=== PATIENT | male | born 1985 | race Caucasian/White ===

== ENCOUNTER 2016-09-26 14:26 | Emergency (ER) | payer OTHER ==
[2016-09-26 14:44] VITALS: BP 118/81; PULSE 117; RESP 18; TEMP 98.1
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
== END 2016-09-26 15:15 | disposition home or self-care (01) ==
LOC: EC 14:26
DX: K08.89 Other specified disorders of teeth and supporting structures (principal); Z87.891 Personal history of nicotine dependence
CPT/HCPCS: 99282

== ENCOUNTER 2016-10-10 21:20 | Emergency (ER) | payer OTHER ==
[2016-10-10 21:28] VITALS: BP 126/90; PULSE 82; RESP 18; TEMP 97.9
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
== END 2016-10-10 22:07 | disposition home or self-care (01) ==
LOC: EC 21:20
DX: S02.5XXA Fracture of tooth (traumatic), initial encounter for closed fracture (principal); K02.9 Dental caries, unspecified; Z87.891 Personal history of nicotine dependence; X58.XXXA Exposure to other specified factors, initial encounter
CPT/HCPCS: 99282

== ENCOUNTER 2016-10-12 10:45 | Day surgery (SDC) | payer OTHER ==
[2016-10-09 14:44] VITALS: BMI 24.2
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
[~2016-10-12 10:45] MED LIST: ACETAMINOPHEN IV (For NPO) 1,000 MG in EMPTY BAG 1 BAG IVPB ONE; DEXAMETHASONE SOD PHOSPHATE 10 MG/ML 1 ML VIAL IV ONE; HEPARIN SODIUM,PORCINE 5,000 UNIT/ML 1 ML VIAL SQ ONE; LACTATED RINGERS 1,000 ML IV SCH; LIDOCAINE 1% 20 ML VIAL (10MG/ML) FOR IV START INTRADERMA PRN; ONDANSETRON 4 MG/2 ML VIAL IVP ONE; SCOPOLAMINE 1.5MG/72HR PATCH TRANSDERM ONE; ceFAZolin 2 GM in SODIUM CHLORIDE 0.9% 100 ML IVPB ONE
[2016-10-12] MEDS ORDERED: ROCURONIUM BROMIDE 10 MG/ML 10 ML VIAL IV ONE (13:13)
[2016-10-12] MEDS ORDERED: NEOSTIGMINE 1 MG/ML 10 ML VIAL ONE (13:13)
[2016-10-12] MEDS ORDERED: GLYCOPYRROLATE 0.2 MG/ML 2 ML VIAL ONE (13:13)
[2016-10-12] MEDS ORDERED: fentaNYL (PF) 50 MCG/ML 2 ML AMP ONE (13:13)
[2016-10-12] MEDS ORDERED: SUCCINYLCHOLINE CHLORIDE 100 MG/5 ML SYR IV ONE (13:13)
[2016-10-12] MEDS ORDERED: PROPOFOL 10 MG/ML 20 ML VIAL IV ONE (13:13)
[2016-10-12] MEDS ORDERED: MIDAZOLAM 2 MG/2 ML VIAL ONE (13:13)
[2016-10-12] MEDS ORDERED: LIDOCAINE 1% INJ 10MG/ML (20 ML MDV) ONE (13:13)
[2016-10-12] MEDS ORDERED: BUPIVACAIN-EPI 0.25%-1:200,000 30 ML VIAL SQ ONE ×2 (13:20→13:37)
[2016-10-12] MEDS ORDERED: LACTATED RINGERS 1,000 ML IV ONE (13:49)
[2016-10-12] MEDS ORDERED: HYDROcodone/APAP 5-325MG 1 EACH TAB PO PRN (14:22)
[2016-10-12] MEDS ORDERED: NALOXONE 0.4 MG/ML 1 ML VIAL IV PRN (14:22)
[2016-10-12] MEDS ORDERED: ONDANSETRON 4 MG/2 ML VIAL IVP PRN (14:22)
[2016-10-12] MEDS ORDERED: PROMETHAZINE 25 MG TAB PO PRN (14:22)
[2016-10-12 14:29] VITALS: TEMP 98.2
[2016-10-12] MEDS ORDERED: KETOROLAC 30 MG/ML 1 ML VIAL IVP SCH (14:30)
[2016-10-12] MEDS: HYDROmorphone 1 MG/ML 1 ML SYRINGE IVP PRN ×2 (14:35→14:39)
[2016-10-12 14:48] VITALS: RESP 16
[2016-10-12] MEDS: HYDROcodone/APAP 5-325MG 1 EACH TAB PO ONE ×2 (15:25→16:21)
[2016-10-12 16:25] VITALS: BP 107/72; PULSE 71
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
== END 2016-10-12 17:30 | disposition home or self-care (01) ==
LOC: OR 10:45
PROVIDERS: ATTEND Surgery Plastic and Reconstructive Surgery
DX: K43.0 Incisional hernia with obstruction, without gangrene (principal); T14.90 Injury, unspecified; V09.9XXS Pedestrian injured in unspecified transport accident, sequela; Z90.81 Acquired absence of spleen; Z86.718 Personal history of other venous thrombosis and embolism; K21.9 Gastro-esophageal reflux disease without esophagitis; H91.90 Unspecified hearing loss, unspecified ear; D68.51 Activated protein C resistance; F90.9 Attention-deficit hyperactivity disorder, unspecified type; F41.9 Anxiety disorder, unspecified; F31.9 Bipolar disorder, unspecified; Z79.2 Long term (current) use of antibiotics; Z79.891 Long term (current) use of opiate analgesic; Z87.891 Personal history of nicotine dependence
CPT/HCPCS: 49329; 49655; C1781; J2250; J1644; J1100; J2710; J0690; J2405; J2001; J3010; J1170; J0131; J0330; J2704

== ENCOUNTER 2016-12-03 00:16 | Emergency (ER) | payer OTHER ==
[2016-12-03 00:22] VITALS: TEMP 98.3
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
--- NOTE | 2016-12-03 02:57 | US ---
ADDENDUM - Added by Ti Barry M.D. on 12/03/2016 2:56 AM (-07:00) EXAM: US Duplex Right Lower Extremity Veins CLINICAL HISTORY: Reason: Pain TECHNIQUE: Real-time ultrasound scan of the veins of the right lower extremity with color Doppler flow, spectral waveform analysis and compression. COMPARISON: No relevant prior studies available. FINDINGS: Deep veins: Unremarkable. No DVT in the visualized common femoral, femoral, proximal deep femoral or popliteal veins. The veins are compressible with normal color flow and augmentation. No DVT in the proximal calf veins Superficial veins: Thrombus in the greater saphenous vein in the mid to low calf correlating with area of pain. Small saphenous vein appears patent Soft tissues: No acute findings. No popliteal cyst. IMPRESSION: 1. No DVT. 2. Thrombus in the right greater saphenous vein in the mid to low calf correlating with area of pain [employer] 12/03/16 03:08 Verify Receipt Verified receipt with MARYJO Bernal, report given to Zaynab BOYCE on 12/03 03:08 (-04:00)
[2016-12-03] MEDS ORDERED: KETOROLAC 60 MG/2 ML VIAL IM STA (03:17)
[2016-12-03 03:38] VITALS: BP 106/70; PULSE 96; RESP 16
== END 2016-12-03 03:38 | disposition home or self-care (01) ==
LOC: EC 00:16
DX: I82.811 Embolism and thrombosis of superficial veins of right lower extremity (principal)
CPT/HCPCS: 99284; 96372; 93971; J1885

== ENCOUNTER 2017-02-18 18:11 | Emergency (ER) | payer OTHER ==
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
[2017-02-18 20:04] VITALS: BP 124/68; PULSE 97; RESP 18; TEMP 98.1
== END 2017-02-18 20:04 | disposition home or self-care (01) ==
LOC: EC 18:11
DX: R25.2 Cramp and spasm (principal); R42 Dizziness and giddiness; Z86.718 Personal history of other venous thrombosis and embolism
CPT/HCPCS: 99283

== ENCOUNTER 2017-02-27 21:31 | Emergency (ER) | payer OTHER ==
[2017-02-27] MEDS ORDERED: SODIUM CHLORIDE 0.9% 500 ML IV STA (22:48)
[2017-02-27] MEDS ORDERED: SODIUM CHLORIDE 0.9% 1,000 ML IV STA (22:48)
[2017-02-27] MEDS ORDERED: ONDANSETRON 4 MG/2 ML VIAL IVP STA (22:48)
[2017-02-27 23:21] LABS: Appearance,Urine Clear (Clear); Bilirubin,Urine Negative (Negative); Glucose,Urine (UA) Negative (Negative); Ketones,Urine Negative (Negative); Leukocyte Esterase,Urine Negative (Negative); Nitrite,Urine Negative (Negative); PH, Urine 5.5 (5.0-8.0); Protein,Urine Negative (Negative); Specific Gravity,Urine 1.015 (1.001-1.035); UA Billing (MACRO vs. MICRO) CHEM; Urobilinogen,Urine <2.0 mg/dL (<2.0)
[2017-02-27 23:24] LABS: Basophils # (A) 0.1 k/uL (0-0.2); Basophils % (A) 1 %; CH 32.4; CHCM 33.3; Eosinophils # (A) 0.4 k/uL (0-0.7); Eosinophils % (A) 3 %; HCT 59.9 % (39.0-53.0); HDW 2.41; HGB 19.7 gm/dL (13.0-17.5); Luc # (Auto) 0.21; Luc % (Auto) 2; Lymphocytes # (A) 4.2 k/uL (1.0-4.8); Lymphocytes % (A) 39 %; MCH 32.2 pg (25.0-35.0); MCHC 32.9 g/dL (31.0-37.0); MCV 98.1 fL (80.0-100.0); Mean Platelet Volume 7.2; Monocytes # (A) 0.9 k/uL (0-1.0); Monocytes % (A) 9 %; Neutrophils # (A) 4.9 k/uL (1.3-7.7); Neutrophils % (A) 46 %; RBC 6.11 m/uL (4.30-5.90); WBC 10.7 k/uL (3.8-10.6); WBC (Perox) 10.88
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
[2017-02-27 23:41] LABS: ALT 33 U/L (21-72); AST 25 U/L (17-59); Alkaline Phosphatase 66 U/L (38-126); Amylase 52 U/L (30-110); Anion Gap 8 mmol/L; Blood Urea Nitrogen 14 mg/dL (9-20); Calcium 9.6 mg/dL (8.4-10.2); Carbon Dioxide 21 mmol/L (22-30); Chloride 109 mmol/L (98-107); Glucose 94 mg/dL (74-99); Non-African American GFR(MDRD) >60 (>60 ml/min/1.73 sqM); Potassium 4.7 mmol/L (3.5-5.1); Sodium 138 mmol/L (137-145); Total Bilirubin 0.5 mg/dL (0.2-1.3); Total Protein 6.9 g/dL (6.3-8.2)
--- NOTE | 2017-02-27 23:48 | XR ---
EXAM: XR Abdomen, 1 View CLINICAL HISTORY: Reason: abdominal pain, dizziness, abd pain, nausea, history of appendectomy, hernia repair and splenectomy TECHNIQUE: Frontal supine view of the abdomen/pelvis. COMPARISON: CT abdomen and pelvis, 10/25/14 FINDINGS: Gastrointestinal tract: Unremarkable. No dilation. Bones/joints: Unremarkable. Soft tissues: Surgical clips right abdomen. IMPRESSION: No acute findings.
[2017-02-28 00:59] VITALS: BP 124/85; PULSE 73; RESP 16; TEMP 97.5
== END 2017-02-28 00:59 | disposition home or self-care (01) ==
LOC: EC 21:31
DX: K52.9 Noninfective gastroenteritis and colitis, unspecified (principal); Z90.49 Acquired absence of other specified parts of digestive tract
CPT/HCPCS: 99284; 96374; 96361 ×2; 36415; 80053; 82150; 83690; 85025; 86308; 81003; 74000; J2405

== ENCOUNTER 2017-03-14 01:35 | Emergency (ER) | payer OTHER ==
[2017-03-14] MEDS ORDERED: KETOROLAC 30 MG/ML 1 ML VIAL IVP STA (02:47)
[2017-03-14] MEDS ORDERED: SODIUM CHLORIDE 0.9% 1,000 ML IV STA (02:47)
[2017-03-14] MEDS ORDERED: METOCLOPRAMIDE 5 MG/ML 2 ML VIAL IVP STA (02:47)
[2017-03-14] MEDS ORDERED: diphenhydrAMINE 50 MG/ML 1 ML VIAL IVP STA (02:47)
[2017-03-14] MEDS ORDERED: ORPHENADRINE 30 MG/ML 2 ML VIAL IVP STA (02:48)
[2017-03-14 04:11] LABS: Basophils # (A) 0.1 k/uL (0-0.2); Basophils % (A) 1 %; CHCM 32.9; Eosinophils # (A) 0.2 k/uL (0-0.7); Eosinophils % (A) 2 %; HDW 2.32; HGB 19.3 gm/dL (13.0-17.5); Luc # (Auto) 0.24; Luc % (Auto) 3; Lymphocytes # (A) 2.9 k/uL (1.0-4.8); Lymphocytes % (A) 33 %; MCH 31.5 pg (25.0-35.0); MCHC 31.2 g/dL (31.0-37.0); Macrocytosis Slight; Mean Platelet Volume 7.1; Monocytes # (A) 0.9 k/uL (0-1.0); Monocytes % (A) 10 %; Neutrophils # (A) 4.5 k/uL (1.3-7.7); Neutrophils % (A) 52 %; RBC 6.13 m/uL (4.30-5.90); RDW 14.9 % (11.5-15.5); WBC 8.8 k/uL (3.8-10.6); WBC (Perox) 8.79
[2017-03-14 04:16] VITALS: BP 106/68; PULSE 73; RESP 18; TEMP 97.4
[2017-03-14 04:20] LABS: HCT 61.9 % (39.0-53.0)
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
[2017-03-14 04:33] LABS: ALT 26 U/L (21-72); AST 19 U/L (17-59); Alkaline Phosphatase 66 U/L (38-126); Anion Gap 11 mmol/L; Blood Urea Nitrogen 12 mg/dL (9-20); Calcium 9.1 mg/dL (8.4-10.2); Carbon Dioxide 18 mmol/L (22-30); Chloride 110 mmol/L (98-107); Glucose 73 mg/dL (74-99); Non-African American GFR(MDRD) >60 (>60 ml/min/1.73 sqM); Potassium 4.6 mmol/L (3.5-5.1); Sodium 139 mmol/L (137-145); Total Bilirubin 1.3 mg/dL (0.2-1.3); Total Protein 6.9 g/dL (6.3-8.2)
== END 2017-03-14 05:07 | disposition home or self-care (01) ==
LOC: EC 01:35
DX: G43.909 Migraine, unspecified, not intractable, without status migrainosus (principal); D75.1 Secondary polycythemia; Z86.718 Personal history of other venous thrombosis and embolism; Z86.2 Personal history of diseases of the blood and blood-forming organs and certain disorders involving the immune mechanism
CPT/HCPCS: 99284 ×2; 96374 ×2; 96375 ×4; 96361 ×2; 36415; 80053; 85025; J1200; J2360; J2765; J1885

== ENCOUNTER 2017-07-23 20:35 | Emergency (ER) | payer OTHER ==
[2017-07-23 21:13] VITALS: BP 127/80; PULSE 79; RESP 20; TEMP 98.1
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
[2017-07-23] MEDS ORDERED: IBUPROFEN 600 MG TAB PO STA (21:53)
== END 2017-07-23 21:56 | disposition home or self-care (01) ==
LOC: EC 20:35
DX: T23.231A Burn of second degree of multiple right fingers (nail), not including thumb, initial encounter (principal); T31.0 Burns involving less than 10% of body surface; Z86.718 Personal history of other venous thrombosis and embolism; X19.XXXA Contact with other heat and hot substances, initial encounter; Y92.009 Unspecified place in unspecified non-institutional (private) residence as the place of occurrence of the external cause
CPT/HCPCS: 16020; 99283

== ENCOUNTER 2017-09-10 16:03 | Emergency (ER) | payer OTHER ==
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
[2017-09-10 16:29] VITALS: BP 129/77; PULSE 92; RESP 18; TEMP 97.7
== END 2017-09-10 16:32 | disposition home or self-care (01) ==
LOC: EC 16:03
DX: L50.9 Urticaria, unspecified (principal); Z85.3 Personal history of malignant neoplasm of breast; Z85.89 Personal history of malignant neoplasm of other organs and systems
CPT/HCPCS: 99282

== ENCOUNTER 2018-03-12 21:20 | Emergency (ER) | payer OTHER ==
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
--- NOTE | 2018-03-12 23:10 | US ---
EXAMINATION TYPE: US venous doppler duplex LE LT DATE OF EXAM: 03/12/2018 10:52 PM COMPARISON: 03/26/2015 CLINICAL HISTORY: Pain. Left leg cramping hx of DVT left leg not on blood thinners. SIDE PERFORMED: Left TECHNIQUE: The lower extremity deep venous system is examined utilizing real time linear array sonog christopher with graded compression, doppler sonography and color-flow sonography. VESSELS IMAGED: External Iliac Vein (EIV) Common Femoral Vein Deep Femoral Vein Greater Saphenous Vein * Femoral Vein Popliteal Vein Small Saphenous Vein * Proximal Calf Veins (* superficial vessels) Left Leg: Flow is seen in femoral and popliteal veins. Veins compress partially probably representin g chronic known DVT. IMPRESSION: There is incomplete compressibility of the femoral vein consistent with chronic deep veno us thrombosis. No evidence of acute deep venous thrombosis.
[2018-03-12 23:57] VITALS: BP 120/68; PULSE 68; RESP 17; TEMP 97.9
== END 2018-03-12 23:57 | disposition home or self-care (01) ==
LOC: EC 21:20
DX: M79.605 Pain in left leg (principal); Z86.718 Personal history of other venous thrombosis and embolism
CPT/HCPCS: 99283

== ENCOUNTER 2019-05-18 18:52 | Emergency (ER) | payer OTHER ==
[2019-05-18 19:08] VITALS: BP 122/87; PULSE 83; RESP 19; TEMP 99.8
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
== END 2019-05-18 21:46 | disposition home or self-care (01) ==
LOC: EC 18:52
DX: F32.9 Major depressive disorder, single episode, unspecified (principal); F41.9 Anxiety disorder, unspecified; R45.851 Suicidal ideations; F10.10 Alcohol abuse, uncomplicated
CPT/HCPCS: 99285

== ENCOUNTER 2019-07-08 19:19 | Emergency (ER) | payer OTHER ==
--- NOTE | 2019-07-08 21:43 | US ---
EXAMINATION TYPE: US venous doppler duplex LE RT DATE OF EXAM: 07/08/2019 9:34 PM COMPARISON: US CLINICAL HISTORY: popliteal pain. Right popliteal pain x 3 days. Hx DVT. Hx green field filter, remov ed. Patient does not take blood thinners. SIDE PERFORMED: Right TECHNIQUE: The lower extremity deep venous system is examined utilizing real time linear array sonog christopher with graded compression, doppler sonography and color-flow sonography. VESSELS IMAGED: Common Femoral Vein Deep Femoral Vein Greater Saphenous Vein * Femoral Vein Popliteal Vein Small Saphenous Vein * Proximal Calf Veins (* superficial vessels) Right Leg: There appears to be echogenic thrombus in the popliteal vein. Trickle flow seen. Vessel d oes not compress. Prox calf veins limited visibility. IMPRESSION: There is some chronic deep venous thrombosis in the popliteal vein.
[2019-07-08] MEDS ORDERED: APIXABAN 5 MG TAB PO STA (22:10)
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
[2019-07-08 22:52] VITALS: BP 125/89; PULSE 97; RESP 18
[2019-07-08 22:58] VITALS: TEMP 97.9
== END 2019-07-08 22:52 | disposition home or self-care (01) ==
LOC: EC 19:19
DX: I82.531 Chronic embolism and thrombosis of right popliteal vein (principal); Z90.81 Acquired absence of spleen
CPT/HCPCS: 99284

== ENCOUNTER 2019-08-20 01:13 | Emergency (ER) | payer OTHER ==
[2019-08-20 01:23] VITALS: TEMP 97.9
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
[2019-08-20 02:01] LABS: Amphetamine Screen,Urine Not Detected (NotDetected); Barbiturate Screen,Urine Not Detected (NotDetected); Benzodiazepines Screen,Urine Not Detected (NotDetected); Cocaine Screen,Urine Not Detected (NotDetected); Methadone Screen, Urine Not Detected (NotDetected); Opiate Screen,Urine Not Detected (NotDetected); Oxycodone Screen, Urine Not Detected (NotDetected); Phencyclidine Screen,Urine Not Detected (NotDetected); Tricyclic Antidepressant,Urine Not Detected (NotDetected); Urn Cannabinoid Scrn Detected (NotDetected)
[2019-08-20 05:28] VITALS: PULSE 60
[2019-08-20 10:41] VITALS: BP 120/82; RESP 18
== END 2019-08-20 10:41 | disposition home or self-care (01) ==
LOC: EC 01:13
DX: F32.9 Major depressive disorder, single episode, unspecified (principal); Z86.718 Personal history of other venous thrombosis and embolism; Z90.81 Acquired absence of spleen
CPT/HCPCS: 80306; 82075; 99285

== ENCOUNTER 2019-11-23 15:53 | Observation (INO) | payer OTHER ==
--- NOTE | 2019-11-23 17:24 | US ---
EXAMINATION TYPE: US venous doppler duplex LE RT DATE OF EXAM: 11/23/2019 4:24 PM COMPARISON: Previous exam 07/08/2019 CLINICAL HISTORY: pain. Factor 5 patient with h/o right leg dvt and multiple PE's in Jul 2019, had Gr eenfield filter but has been removed, currently not on thinners SIDE PERFORMED: Right TECHNIQUE: The lower extremity deep venous system is examined utilizing real time linear array sonog christopher with graded compression, doppler sonography and color-flow sonography. VESSELS IMAGED: External Iliac Vein (EIV) Common Femoral Vein Deep Femoral Vein Greater Saphenous Vein * Femoral Vein Popliteal Vein Small Saphenous Vein * Proximal Calf Veins (* superficial vessels) Right Leg: No flow seen within venous system from proximal calf veins up through proximal femoral ve in. Vein is non compressible at these levels and have internal debris with dilation to vessel. IMPRESSION: Deep venous thrombosis throughout the distribution of the right superficial femoral, popl iteal veins.
[2019-11-23] MEDS ORDERED: HEPARIN SODIUM,PORCINE 5,000 UNIT/ML 1 ML VIAL IV PRN (17:42)
[2019-11-23] MEDS ORDERED: HEPARIN SODIUM,PORCINE 10,000 UNIT/ML 1 ML VIAL IV ONE (17:42)
[2019-11-23] MEDS ORDERED: HEPARIN SOD,PORK IN 0.45% NACL 25,000 UNIT in 0.45% NACL 1 250ML.BAG IV SCH (17:45)
[2019-11-23 17:47] LABS: Basophils # (A) 0.1 k/uL (0-0.2); Basophils % (A) 1 %; Eosinophils # (A) 0.4 k/uL (0-0.7); Eosinophils % (A) 3 %; Lymphocytes # (A) 2.5 k/uL (1.0-4.8); Lymphocytes % (A) 19 %; MCH 32.5 pg (25.0-35.0); MCHC 32.3 g/dL (31.0-37.0); MCV 100.7 fL (80.0-100.0); Mean Platelet Volume 7.3; Monocytes # (A) 1.6 k/uL (0-1.0); Monocytes % (A) 12 %; Neutrophils # (A) 8.1 k/uL (1.3-7.7); Neutrophils % (A) 62 %; Platelet Count 305 k/uL (150-450); RBC 5.97 m/uL (4.30-5.90); RDW 13.4 % (11.5-15.5)
[2019-11-23 17:53] LABS: HCT 60.1 % (39.0-53.0); HGB 19.4 gm/dL (13.0-17.5)
[2019-11-23] MEDS ORDERED: NALOXONE 0.4 MG/ML 1 ML VIAL IV PRN (18:23)
[2019-11-23 18:25] LABS: ALT 12 U/L (4-49); AST 20 U/L (17-59); African American GFR (CKD) >90 (>60 ml/min/1.73 sqM); Albumin 3.9 g/dL (3.5-5.0); Alkaline Phosphatase 71 U/L (38-126); Anion Gap 7 mmol/L; Blood Urea Nitrogen 8 mg/dL (9-20); Calcium 9.1 mg/dL (8.4-10.2); Carbon Dioxide 24 mmol/L (22-30); Chloride 105 mmol/L (98-107); Glucose 94 mg/dL (74-99); Non-African American GFR(CKD) >90 (>60 ml/min/1.73 sqM); Potassium 4.4 mmol/L (3.5-5.1); Sodium 136 mmol/L (137-145); Total Bilirubin 1.4 mg/dL (0.2-1.3)
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
--- NOTE | 2019-11-23 18:40 | CT ---
EXAMINATION TYPE: CT chest angio for PE DATE OF EXAM: 11/23/2019 COMPARISON: None HISTORY: Tachycardia. History of PE in July and positive DVT. CT DLP: 360.3 mGycm Automated exposure control for dose reduction was used. CONTRAST: CT Chest for pulmonary embolism performed with with IV Contrast, patient injected with 100 mL of Isov ue 370. FINDINGS: LUNGS: The lungs are grossly clear, there is no concerning parenchymal mass or nodule identified. T here is no pleural effusion or pneumothorax seen. The tracheobronchial tree is patent. MEDIASTINUM: There is satisfactory enhancement of the pulmonary artery and its branches, there is no CT evidence for pulmonary embolism. There are no greater than 1 cm hilar or mediastinal lymph nodes. No pericardial effusion is seen. There is an hiatal hernia present. AORTA: No additional significant abnormality is seen. OTHER: No additional significant abnormality is seen. IMPRESSION: No evident pulmonary embolus.
[2019-11-23 18:43] LABS: Partial Thromboplastin Time 24.4 sec (22.0-30.0); Prothrombin Time 10.3 sec (9.0-12.0)
[2019-11-23] MEDS: SODIUM CHLORIDE 0.9% 1,000 ML IV SCH (18:56)
[2019-11-23] MEDS ORDERED: LITHIUM CARBONATE 300 MG CAP PO SCH (21:40)
[2019-11-23] MEDS ORDERED: QUEtiapine 50 MG TAB PO SCH (21:45)
[2019-11-24 06:41] LABS: African American GFR (CKD) >90 (>60 ml/min/1.73 sqM); Anion Gap 5 mmol/L; Basophils # (A) 0.1 k/uL (0-0.2); Basophils % (A) 1 %; Blood Urea Nitrogen 6 mg/dL (9-20); Calcium 8.7 mg/dL (8.4-10.2); Carbon Dioxide 22 mmol/L (22-30); Chloride 109 mmol/L (98-107); Eosinophils # (A) 0.5 k/uL (0-0.7); Eosinophils % (A) 3 %; Glucose 101 mg/dL (74-99); HGB 18.4 gm/dL (13.0-17.5); Lymphocytes # (A) 4.5 k/uL (1.0-4.8); Lymphocytes % (A) 29 %; MCH 32.6 pg (25.0-35.0); MCHC 32.6 g/dL (31.0-37.0); Mean Platelet Volume 7.5; Monocytes # (A) 1.9 k/uL (0-1.0); Monocytes % (A) 12 %; Neutrophils # (A) 8.5 k/uL (1.3-7.7); Neutrophils % (A) 54 %; Non-African American GFR(CKD) >90 (>60 ml/min/1.73 sqM); Platelet Count 309 k/uL (150-450); Potassium 4.2 mmol/L (3.5-5.1); RBC 5.65 m/uL (4.30-5.90); RDW 13.6 % (11.5-15.5); Sodium 136 mmol/L (137-145); WBC 15.9 k/uL (3.8-10.6)
[2019-11-24 06:51] LABS: HCT 56.5 % (39.0-53.0)
[2019-11-24] MEDS: SODIUM CHLORIDE 0.9% 1,000 ML IV SCH (08:15)
[2019-11-24 08:32] VITALS: BP 114/76; PULSE 94; RESP 19; TEMP 98.6
[2019-11-24] MEDS ORDERED: VENLAFAXINE HCL ER 75 MG CAP PO SCH (09:00)
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
--- NOTE | 2019-11-24 14:06 | P.DS ---
Providers Date of admission: 11/23/19 19:21 Attending physician: Javier Keen MD Consults: 11/23/19 18:46 Consult Physician Routine Consulting Provider: Chavez Yu Consult Reason/Comments: Elevated HgB, Factor V patient, admitted for DVT Do you want consulting provider notified?: Yes, Notify in am Primary care physician: Stated None Hospital Course: refer to my history of present illness for further details Patient Condition at Discharge: Stable Plan - Discharge Summary New Discharge Prescriptions: New Apixaban [Eliquis Starter Pack (for VTE)] 0 mg PO DIRECTED 30 Days #1 pack Continue Venlafaxine HCl [Effexor XR] 225 mg PO DAILY QUEtiapine [SEROquel] 50 mg PO HS [place] Carbonate 600 mg PO HS Discharge Medication List [place] Carbonate 600 mg PO HS 11/23/19 [History] QUEtiapine [SEROquel] 50 mg PO HS 11/23/19 [History] Venlafaxine HCl [Effexor XR] 225 mg PO DAILY 11/23/19 [History] Apixaban [Eliquis Starter Pack (for VTE)] 0 mg PO DIRECTED 30 Days #1 pack 11/24/19 [Rx] Follow up Appointment(s)/Referral(s): Chavez Yu MD [STAFF PHYSICIAN] - 1 Week (Spoke to spa technician. Office will call with appointment time) Maliha Elias MD [REFERRING] - 3 Days (Per spa technician, you must call to make your own appointment) Patient Instructions/Handouts: Deep Vein Thrombosis (DC), Safe Use of Anticoagulants (DC) Discharge Disposition: HOME SELF-CARE
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
== END 2019-11-24 17:25 | disposition home or self-care (01) ==
LOC: EC 15:53 → 3SCARD 19:21 → INTOOBSV 19:21 → 3SCARD 20:19 → UNDODISIN 11-24 17:25
PROVIDERS: ADMIT Internal Medicine; ATTEND Internal Medicine
DX: I82.411 Acute embolism and thrombosis of right femoral vein (principal); I82.431 Acute embolism and thrombosis of right popliteal vein; D72.829 Elevated white blood cell count, unspecified; D75.1 Secondary polycythemia; D68.2 Hereditary deficiency of other clotting factors; E87.1 Hypo-osmolality and hyponatremia; F12.90 Cannabis use, unspecified, uncomplicated; Z71.51 Drug abuse counseling and surveillance of drug abuser; F31.9 Bipolar disorder, unspecified; Z91.128 Patient's intentional underdosing of medication regimen for other reason; T45.516A Underdosing of anticoagulants, initial encounter; F17.200 Nicotine dependence, unspecified, uncomplicated; D68.59 Other primary thrombophilia; R00.0 Tachycardia, unspecified; F90.9 Attention-deficit hyperactivity disorder, unspecified type; F41.9 Anxiety disorder, unspecified; Z87.828 Personal history of other (healed) physical injury and trauma; Z79.899 Other long term (current) drug therapy; Z03.818 Encounter for observation for suspected exposure to other biological agents ruled out; Z86.718 Personal history of other venous thrombosis and embolism; Z86.711 Personal history of pulmonary embolism; Z90.49 Acquired absence of other specified parts of digestive tract; Z90.81 Acquired absence of spleen; Z98.890 Other specified postprocedural states; Z83.3 Family history of diabetes mellitus; Z82.49 Family history of ischemic heart disease and other diseases of the circulatory system; Z83.49 Family history of other endocrine, nutritional and metabolic diseases; Z80.3 Family history of malignant neoplasm of breast; Z80.49 Family history of malignant neoplasm of other genital organs
CPT/HCPCS: 96374; 99285; 36415; 93005; 80053; 80048; 85025 ×2; 85610; 85730 ×2; 93971; 71275; G0378 ×2; U0003; J1644 ×2; Q9967; 96365; 96366; 96376

== ENCOUNTER 2020-02-03 23:57 | Observation (INO) | payer OTHER ==
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
--- NOTE | 2020-02-04 01:07 | US ---
EXAMINATION TYPE: US venous doppler duplex LE RT DATE OF EXAM: 02/04/2020 12:55 AM COMPARISON: US 2019 CLINICAL HISTORY: DVT hx, factor 5. Hx DVT in right lower extremity. Factor 5. Hx keli filter r emoved. Patient does not take blood thinners. SIDE PERFORMED: Right TECHNIQUE: The lower extremity deep venous system is examined utilizing real time linear array sonog christopher with graded compression, doppler sonography and color-flow sonography. VESSELS IMAGED: External Iliac Vein (EIV) Common Femoral Vein Deep Femoral Vein Greater Saphenous Vein * Femoral Vein Popliteal Vein Small Saphenous Vein * Proximal Calf Veins (* superficial vessels) Right Leg: Internal echoes are seen within the femoral vein and popliteal vein. Thrombus seen from pr ox calf veins to prox femoral vein. Unable to fully compress these veins. Thready or no flow is seen within these segments. IMPRESSION: There is evidence of acute deep vein thrombosis involving the femoral and popliteal vein.
[2020-02-04 01:15] LABS: Appearance,Urine Clear (Clear); Bilirubin,Urine Negative (Negative); Blood,Urine Negative (Negative); Color,Urine Yellow; Glucose,Urine (UA) Negative (Negative); Ketones,Urine Negative (Negative); Leukocyte Esterase,Urine Negative (Negative); Nitrite,Urine Negative (Negative); PH, Urine 5.5 (5.0-8.0); Protein,Urine Negative (Negative); Specific Gravity,Urine 1.009 (1.001-1.035); Urobilinogen,Urine <2.0 mg/dL (<2.0)
[2020-02-04] MEDS ORDERED: HEPARIN SODIUM,PORCINE 10,000 UNIT/ML 1 ML VIAL IV ONE (01:27)
[2020-02-04] MEDS ORDERED: HEPARIN SODIUM,PORCINE 5,000 UNIT/ML 1 ML VIAL IV PRN (01:27)
[2020-02-04 01:28] LABS: Amphetamine Screen,Urine Not Detected (NotDetected); Barbiturate Screen,Urine Not Detected (NotDetected); Benzodiazepines Screen,Urine Not Detected (NotDetected); Cocaine Screen,Urine Not Detected (NotDetected); Methadone Screen, Urine Not Detected (NotDetected); Opiate Screen,Urine Not Detected (NotDetected); Oxycodone Screen, Urine Not Detected (NotDetected); Phencyclidine Screen,Urine Not Detected (NotDetected); Tricyclic Antidepressant,Urine Not Detected (NotDetected); Urn Cannabinoid Scrn Detected (NotDetected)
[2020-02-04] MEDS ORDERED: HEPARIN SOD,PORK IN 0.45% NACL 25,000 UNIT in 0.45% NACL 1 250ML.BAG IV SCH (01:30)
[2020-02-04] MEDS ORDERED: NALOXONE 0.4 MG/ML 1 ML VIAL IV PRN (01:38)
[2020-02-04 02:19] LABS: INR 1.1 (<1.2); Partial Thromboplastin Time 23.4 sec (22.0-30.0); Prothrombin Time 11.1 sec (9.0-12.0)
[2020-02-04 02:22] LABS: African American GFR (CKD) >90 (>60 ml/min/1.73 sqM); Albumin 3.9 g/dL (3.5-5.0); Anion Gap 6 mmol/L; Carbon Dioxide 23 mmol/L (22-30); Chloride 109 mmol/L (98-107); Glucose 88 mg/dL (74-99); Non-African American GFR(CKD) >90 (>60 ml/min/1.73 sqM); Sodium 138 mmol/L (137-145); Total Bilirubin 1.1 mg/dL (0.2-1.3); Total Protein 6.7 g/dL (6.3-8.2)
[2020-02-04 02:23] LABS: Basophils # (A) 0.1 k/uL (0-0.2); Basophils % (A) 1 %; Eosinophils # (A) 0.3 k/uL (0-0.7); Eosinophils % (A) 3 %; HCT 54.5 % (39.0-53.0); HGB 17.3 gm/dL (13.0-17.5); Lymphocytes # (A) 3.2 k/uL (1.0-4.8); Lymphocytes % (A) 33 %; MCH 31.4 pg (25.0-35.0); MCHC 31.7 g/dL (31.0-37.0); MCV 99.3 fL (80.0-100.0); Mean Platelet Volume 7.6; Monocytes % (A) 10 %; Neutrophils % (A) 50 %; Platelet Count 337 k/uL (150-450); RDW 13.6 % (11.5-15.5); WBC 9.9 k/uL (3.8-10.6)
[2020-02-04 02:28] LABS: ALT 11 U/L (4-49); AST 24 U/L (17-59); Alkaline Phosphatase 53 U/L (38-126); Blood Urea Nitrogen 9 mg/dL (9-20); Potassium 5.2 mmol/L (3.5-5.1)
[2020-02-04 07:43] VITALS: BP 103/65; PULSE 51; RESP 15; TEMP 97.9
[2020-02-04] MEDS ORDERED: APIXABAN 5 MG TAB PO SCH (11:15)
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
--- NOTE | 2020-02-04 12:48 | P.DS ---
Providers Date of admission: 02/04/20 01:40 Attending physician: Shayla Wills Consults: 02/04/20 11:48 Consult Physician Stat Consulting Provider: Nohemy Jung Consult Reason/Comments: Suicidal Do you want consulting provider notified?: Yes Primary care physician: Jada [facility] Course: please refer to my history of present illness for further details Patient Condition at Discharge: Serious Plan - Discharge Summary Discharge Rx Participant: Yes New Discharge Prescriptions: New Apixaban [Eliquis Starter Pack (for VTE)] 0 mg PO DIRECTED 30 Days #1 pack Continue Venlafaxine HCl [Effexor XR] 225 mg PO DAILY QUEtiapine [SEROquel] 50 mg PO HS [place] Carbonate 600 mg PO HS Discharge Medication List [place] Carbonate 600 mg PO HS 11/23/19 [History] QUEtiapine [SEROquel] 50 mg PO HS 11/23/19 [History] Venlafaxine HCl [Effexor XR] 225 mg PO DAILY 11/23/19 [History] Apixaban [Eliquis Starter Pack (for VTE)] 0 mg PO DIRECTED 30 Days #1 pack 02/04/20 [Rx] Follow up Appointment(s)/Referral(s): Maliha Elias MD [Primary Care Provider] - 3 Days Discharge Disposition: TRANSFER TO PSYCH HOSP/UNIT
--- NOTE | 2020-02-04 17:08 | CONS ---
CONSULTATION REASON FOR CONSULTATION: Suicidal ideation. The patient is 34, single main who is currently living on his own. The patient presented to the emergency room with a blood clot in his right leg. The patient stated that he was depressed and thinking about suicide until his ex-girlfriend called him back and he said, "I changed my mind. I am not suicidal. I just was lonely, but now she is back in my life." Patient stated that he has long history of depression since his teenage with diagnosis of attention deficit and hyperactivity versus bipolar disorder. According to him, he tried most of psychotropic medication and nothing did help. Today, he was laughing and smiling and he denied feeling hopeless or helpless or feeling overwhelmed. He denied any sleeping or appetite issue. He denied any psychotic feature. He denied any manic features saying "I had been smoking marijuana every day and this is the only thing making me think positive about the future." Regarding his past psychiatric history, he stated that he has been inpatient for bipolar at least 4 or 5 times, first time in 2007. His last time was 10 years ago in our facility. The patient's past psychiatric diagnosis, bipolar disorder, borderline personality, ADHD, depression. Currently, he has been seen at [facility] by Dr. Beverly and he has a therapist, her name is Lyndsey. The patient stated that last time he took his psychotropic medication it was end of November. LAST PSYCHOTROPIC MEDICATION: Was lithium 600 at bedtime, Seroquel 50 mg at bedtime for sleep, Effexor 225 daily. MEDICAL HISTORY: Patient has chronic deep venous thrombosis on the right leg and was started on Eliquis. Also, he has Factor 5 Leiden deficiency in addition to mild hyperkalemia secondary to hemolysis. ALLERGIES: There is no drug allergy. His vital signs, temperature 97.9, pulse 51, respiration 15, blood pressure 122/67. His pulse ox was between 97%-96%. SUBSTANCE ABUSE HISTORY: He stated that the only thing he has been doing on a regular basis is smoking marijuana on daily basis and he has been trying to find physician to prescribe medical marijuana card for him. He said "I found one at [place], just can take 75 dollar and give me medical marijuana and I am planning to do this." FAMILY HISTORY OF PSYCHIATRIC ILLNESS: Both parents had depression. There is no family member who committed suicide. BRIEF SOCIAL HISTORY: Patient stated that he did have behavior problems in school and he was always explosive, impulsive, and he did have history of self-mutilation by cutting himself, but according to him for the last 15 years he has been doing mini tattoo to cover this. The patient stated that he did have a hard time in school because of his behavior and his short attention span. Currently, he is unemployed. He applied for social security and got denied. 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 He has pierced nose and pierced two ears. He was wearing eyeglasses with blue frames. He was laughing and smiling. His hygiene and grooming are fair. He was cooperative. There is no psychomotor agitation. No anxiety. His speech was spontaneous and coherent. His mood "I am happy." Affect is appropriate to thought content. He denied having any suicidal ideation or homicidal ideation. He denied having any hallucination. There is no evidence of any delusional thinking. He is alert, oriented x3. His memory is grossly intact. Insight and judgment are fair. ASSESSMENT: 1. Bipolar disorder type 2. 2. Cannabis use disorder. 3. Cluster B personality disorder. PLAN: The patient denied any suicidal ideation. The patient does not have any suicidal attempt in the past, so discontinue one-to-one. The patient can be discharged to [facility]. He stated that he has an appointment with his therapist, Lyndsey, this week or tomorrow. The patient has to schedule his medication appointment with Dr. Beverly as he did miss his appointment in December. Thank you for this consultation. MMODL / IJN: [id number] /
[2020-02-04] MEDS ORDERED: QUEtiapine 50 MG TAB PO SCH (21:00)
[2020-02-04] MEDS ORDERED: LITHIUM CARBONATE 300 MG CAP PO SCH (21:00)
[2020-02-05] MEDS ORDERED: VENLAFAXINE HCL ER 75 MG CAP PO SCH (09:00)
== END 2020-02-04 15:50 | disposition home or self-care (01) ==
LOC: EC 23:57 → 4SSUR 02-04 01:40 → INTOOBSV 02-04 01:40 → UNDODISIN 02-04 15:50
PROVIDERS: ADMIT Hospitalist; ATTEND Hospitalist
DX: I82.531 Chronic embolism and thrombosis of right popliteal vein (principal); I82.511 Chronic embolism and thrombosis of right femoral vein; I82.411 Acute embolism and thrombosis of right femoral vein; R45.851 Suicidal ideations; D68.51 Activated protein C resistance; E87.5 Hyperkalemia; F60.3 Borderline personality disorder; F31.81 Bipolar II disorder; F60.89 Other specific personality disorders; T45.516A Underdosing of anticoagulants, initial encounter; Z91.128 Patient's intentional underdosing of medication regimen for other reason; F90.9 Attention-deficit hyperactivity disorder, unspecified type; F31.9 Bipolar disorder, unspecified; F12.10 Cannabis abuse, uncomplicated; F41.9 Anxiety disorder, unspecified; Z79.899 Other long term (current) drug therapy; Z91.5 Personal history of self-harm; Z83.3 Family history of diabetes mellitus; Z82.49 Family history of ischemic heart disease and other diseases of the circulatory system; Z83.49 Family history of other endocrine, nutritional and metabolic diseases; Z80.3 Family history of malignant neoplasm of breast; Z80.49 Family history of malignant neoplasm of other genital organs; Z81.8 Family history of other mental and behavioral disorders; Z56.0 Unemployment, unspecified; Z90.49 Acquired absence of other specified parts of digestive tract; Z90.81 Acquired absence of spleen
CPT/HCPCS: 96366; 96376; 82075; 96365; 99285; 80053; 85025; 85610; 85730; 81003; 80306; 93971; G0378; J1644 ×2; 96374

== ENCOUNTER 2020-10-12 23:21 | Emergency (ER) | payer OTHER ==
[2020-10-12 23:29] VITALS: BP 115/77; PULSE 103; RESP 18; TEMP 98.8
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
--- NOTE | 2020-10-13 00:32 | US ---
EXAM: US Duplex Left Lower Extremity Veins CLINICAL HISTORY: ITS.REASON US Reason: r/o dvt TECHNIQUE: Real-time duplex ultrasound scan of the left lower extremity veins integrating B-mode two-dimensional vascular structure, Doppler spectral analysis, color flow Doppler imaging and compression. COMPARISON: No relevant prior studies available. FINDINGS: Deep veins: Small amount of chronic appearing thrombus along the wall of the popliteal vein and left femoral vein which are incompletely compressible consistent with chronic DVT. No acute DVT is seen involving the left lower extremity. Superficial veins: Unremarkable. No thrombus in the visualized great saphenous vein. Soft tissues: No acute findings. No popliteal cyst. IMPRESSION: Small amount of chronic appearing thrombus along the wall of the popliteal vein and left femoral vein which are incompletely compressible consistent with chronic DVT. No acute DVT is seen involving the left lower extremity.
[2020-10-13] MEDS ORDERED: APIXABAN 5 MG TAB PO STA (01:26)
== END 2020-10-13 01:32 | disposition home or self-care (01) ==
LOC: EC 23:21
DX: I82.402 Acute embolism and thrombosis of unspecified deep veins of left lower extremity (principal); F32.9 Major depressive disorder, single episode, unspecified; F12.90 Cannabis use, unspecified, uncomplicated; Z90.49 Acquired absence of other specified parts of digestive tract; Z86.718 Personal history of other venous thrombosis and embolism
CPT/HCPCS: 99283

== ENCOUNTER 2021-03-30 01:34 | Emergency (ER) | payer OTHER ==
[2021-03-30 01:38] VITALS: TEMP 98.6
[2021-03-30] MEDS ORDERED: SODIUM CHLORIDE 0.9% 1,000 ML IV STA (01:53)
[2021-03-30] MEDS ORDERED: SODIUM CHLORIDE 0.9% 500 ML 500 ML IV STA (01:53)
[2021-03-30] MEDS ORDERED: MORPHINE SULFATE 4 MG/ML SYRINGE IV STA (01:53)
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
[2021-03-30 02:47] VITALS: RESP 18
[2021-03-30 03:20] LABS: ALT 15 U/L (4-49); AST 19 U/L (17-59); African American GFR (CKD) >90 (>60 ml/min/1.73 sqM); Albumin 4.2 g/dL (3.5-5.0); Alkaline Phosphatase 53 U/L (38-126); Anion Gap 9 mmol/L; Blood Urea Nitrogen 10 mg/dL (9-20); Calcium 9.4 mg/dL (8.4-10.2); Carbon Dioxide 23 mmol/L (22-30); Chloride 107 mmol/L (98-107); Glucose 108 mg/dL (74-99); Lipase 912 U/L (23-300); Magnesium 1.9 mg/dL (1.6-2.3); Non-African American GFR(CKD) >90 (>60 ml/min/1.73 sqM); Potassium 4.1 mmol/L (3.5-5.1); Sodium 139 mmol/L (137-145); Total Bilirubin 0.8 mg/dL (0.2-1.3); Total Protein 7.1 g/dL (6.3-8.2)
--- NOTE | 2021-03-30 03:32 | CT ---
EXAMINATION TYPE: CT angio chest DATE OF EXAM: 03/30/2021 COMPARISON: 11/23/2019 HISTORY: chest pain. history of factor 5 and DVT. rule out PE. CT DLP: 343 mGycm Automated exposure control for dose reduction was used. CONTRAST: Performed with IV Contrast, patient injected with 88ml mL of Isovue 370. There are 3-D post processed images. There is no mediastinal adenopathy. Thoracic aorta appears intact. There is no aneurysm or dissection . There are no hilar masses. There is normal contrast opacification of the pulmonary arteries. There are no filling defects. Heart size is normal. There is no pericardial effusion. There is no pleural effusion. Upper bowel sof t tissues are intact. The lungs are clear of infiltrate. There is no evidence of a pulmonary mass. The thoracic spine is intact. Sternum is intact. The ribs appear intact. IMPRESSION: Negative exam. No evidence of pulmonary embolism. There is clearing of the subsegmental atelectasis t o large extent at the right posterior lung base compared to old exam.
[2021-03-30 03:38] LABS: HGB 18.5 gm/dL (13.0-17.5); RBC 5.69 m/uL (4.30-5.90); WBC 10.8 k/uL (3.8-10.6)
[2021-03-30 03:39] LABS: HCT 57.6 % (39.0-53.0); MCH 32.5 pg (25.0-35.0); MCHC 32.1 g/dL (31.0-37.0); MCV 101.3 fL (80.0-100.0)
[2021-03-30 03:40] LABS: Macrocytosis Slight; Mean Platelet Volume 7.4; Platelet Count 383 k/uL (150-450)
[2021-03-30 03:41] LABS: Basophils # (A) 0.1 k/uL (0-0.2); Basophils % (A) 1 %; Eosinophils # (A) 0.3 k/uL (0-0.7); Eosinophils % (A) 2 %; Lymphocytes # (A) 4.3 k/uL (1.0-4.8); Lymphocytes % (A) 40 %; Monocytes # (A) 0.9 k/uL (0-1.0); Monocytes % (A) 9 %; Neutrophils # (A) 4.9 k/uL (1.3-7.7); Neutrophils % (A) 45 %
[2021-03-30 04:05] VITALS: BP 104/64; PULSE 76
== END 2021-03-30 04:07 | disposition home or self-care (01) ==
LOC: EC 01:34
DX: R07.89 Other chest pain (principal); K85.90 Acute pancreatitis without necrosis or infection, unspecified; F31.9 Bipolar disorder, unspecified; F41.9 Anxiety disorder, unspecified; F12.90 Cannabis use, unspecified, uncomplicated; Z79.01 Long term (current) use of anticoagulants; Z79.899 Other long term (current) drug therapy; Z86.718 Personal history of other venous thrombosis and embolism; Z90.49 Acquired absence of other specified parts of digestive tract; Z83.49 Family history of other endocrine, nutritional and metabolic diseases; Z83.3 Family history of diabetes mellitus; Z82.49 Family history of ischemic heart disease and other diseases of the circulatory system; Z80.3 Family history of malignant neoplasm of breast
CPT/HCPCS: 36415; 93005; 83880; 80053; 83690; 83735; 84484; 85025; 71275; 99285; 96374; J2270; Q9967

== ENCOUNTER 2022-01-22 16:53 | Emergency (ER) | payer OTHER ==
[2022-01-22 17:05] VITALS: BP 110/79; PULSE 105; RESP 22; TEMP 99.9
[2022-01-22] MEDS ORDERED: IBUPROFEN 800 MG TAB PO STA (17:58)
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
== END 2022-01-22 18:13 | disposition home or self-care (01) ==
LOC: EC 16:53
DX: U07.1 COVID-19 (principal); Z86.718 Personal history of other venous thrombosis and embolism
CPT/HCPCS: 87635; 99283